=== PATIENT | female | born 1975 | race Caucasian/White ===

== ENCOUNTER 2024-12-22 12:29 | Outpatient (CLI) | payer OTHER, SELFPAY ==
--- NOTE | ~2024-12-22 | MMUS_ITS ---
EXAMINATION: MM diagnostic jaclyn RT w adriana, US breast RT limited HISTORY: Abnormal mammogram. TECHNIQUE: Additional 3-D tomosynthesis images of the right breast were performed and synthetic 2-D i mages were generated. CAD analysis was submitted and interpreted. High resolution Limited right breas t ultrasound was performed. COMPARISON: 11/02/2024 BREAST PARENCHYMAL COMPOSITION: Not dense: There are scattered areas of fibroglandular density. FINDINGS: MAMMOGRAPHIC FINDINGS: Focal asymmetry in the upper outer quadrant of the right breast is persistent, not well visualized on CC view. No suspicious calcifications or architectural distortion. ULTRASOUND: Limited right breast ultrasound: Normal heterogeneous echotexture without focal solid or cystic mass. IMPRESSION: 1. Probable benign focal asymmetry superior aspect of the right breast, best seen on MLO and mediolat eral views. No sonographic correlate. BI-RADS CATEGORY 3-PROBABLY BENIGN FINDING RECOMMENDATION: Six-month follow-up diagnostic right mammogram recommended. Reviewed, dictated and finalized at location B. IMPRESSION: 1. Probable benign focal asymmetry superior aspect of the right breast, best se en on MLO and mediolateral views. No sonographic correlate. BI-RADS CATEGORY 3-PROBABLY BENIGN FINDING RECOMMENDATION: Six-month follow-up diagnostic right mammogram recommended.
--- OUTSIDE RECORDS SUMMARY | 2024-12-22 12:34 | XMS_ITS | Clinical Summary ---
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 Role Phone Unavailable Primary Care Provider Unavailabl e Social History Tobacco Use Types Packs/Day Years Used Date Smoking Tobacco: Never Assessed Comments Unknown Sex and Gender Information Value Date Recorded Sex Assigned at Not on file Legal Sex Female 12:32 PM CDT Gender Identity Not on file Sexual Orientation Not on file Plan of Treatment Health Maintenance Due Date Last Done Comments Cervical Cancer Screening Pa p Smear (Age 30 to 64) Every 3 Years 1975 Colorectal Cancer Screening Colonoscopy (10 Years) 1975 Annual Physical 12/12/1978 Hepatitis C 12/12/1993 DTaP, Tdap and Td Vaccines ( 1 - Tdap) 12/12/1994 Hepatitis B Vaccines (1 of 3 - 19+ 3-dose series) 12/12/1994 Cervical Cancer Screening Pa p with HPV Testing (Age 30 to 64) Every 5 Years 12/12/2005 Cervical Cancer Screening with HPV 12/12/2005 Mammogram Screening 2015 COVID-19 Vaccine (2023-2 5 season) 2024 Meningococcal B Vaccine Aged Out No l onger eligible based on patient's age to complete this topic Meningococcal Vaccine Aged Out No shemar marbella eligible based on patient's age to complete this topic Pneumococcal Vaccine: Pediat rics (0 to 5 Years) and At-Risk Patients (6 to 49 Years) Aged Out No longer eligible b ased on patient's age to complete this topic RSV Immunizations Under 20 Months Aged Out No longer eligible based on patient's age to complete this topic
== END 2024-12-22 12:30 | disposition home or self-care (01) ==
LOC: ANHIMG 12:33
PROVIDERS: PCP Internal Medicine Infectious Disease; Visit Provider Internal Medicine Infectious Disease
DX: R92.8 Other abnormal and inconclusive findings on diagnostic imaging of breast (principal)
CPT/HCPCS: 76642; 77061; 77065; G0279